=== PATIENT | male | born 1965 | race Native Hawaiian/Other Pacific Islander ===

== ENCOUNTER → 2017-11-06 | Outpatient (CLI) | payer BC | END | disposition short-term general hospital (02) | LOC: AMB 15:29 | DX: N39.0 Urinary tract infection, site not specified (principal); R31.29 Other microscopic hematuria; K46.0 Unspecified abdominal hernia with obstruction, without gangrene; M54.89 Other dorsalgia | CPT/HCPCS: A0425; A0429 ==

== ENCOUNTER 2017-12-21 13:30 | Outpatient (CLI) | payer BC | END 2017-12-21 19:41 | disposition home or self-care (01) | LOC: RESP 13:30 | DX: R05 Cough (principal) ==